=== PATIENT | female | born 1940 | race Caucasian/White ===

== ENCOUNTER 2023-02-03 14:41 | Emergency (ER) | payer OTHER ==
[2023-02-03 14:55] VITALS: BP 134/69; PULSE 77; RESP 18; TEMP 97.9; BMI 21.9
== END 2023-02-03 16:05 | disposition home or self-care (01) ==
LOC: JER 14:41
DX: S69.91XA Unspecified injury of right wrist, hand and finger(s), initial encounter (principal); W18.30XA Fall on same level, unspecified, initial encounter
CPT/HCPCS: 73140-TC-RT-FY; 99283-25

== ENCOUNTER 2023-06-29 18:09 | Emergency (ER) | payer OTHER ==
[2023-06-29 18:31] VITALS: BP 124/68; PULSE 68; RESP 18; TEMP 98; BMI 20.1
[2023-06-29] MEDS ORDERED: CLINDAMYCIN HCL 150 MG CAPSULE (FP) PO ONE (19:38)
[2023-06-29] MEDS ORDERED: CLINDAMYCIN HCL 150 MG CAPSULE (FP) ONE (19:49)
[2023-06-29 20:14] LABS: BASO % 1.2 % (0-2.0); EOS % 2.9 % (0-4.5); HEMOGLOBIN 13.7 GM/dL (10.7-15.3); LYMPH % 30.5 % (8-40); MCH 29.4 pg (25.7-33.7); MCHC 34.3 g/dl (32.0-36.0); MEAN CELL VOLUME 85.9 fl (80-96); MEAN PLT VOLUME 8.1 fl (7.5-11.1); MONO % 7.8 % (3.8-10.2); NEUT % 57.6 % (42.8-82.8); PLATELET COUNT 267 10^3/uL (134-434); RBC 4.65 M/mm3 (3.60-5.2); RDW 13.8 % (11.6-15.6); WHITE BLOOD COUNT 11.2 K/mm3 (4.0-10.0)
[2023-06-29 20:43] LABS: POTASSIUM 4.1 mmol/L (3.5-5.1)
[2023-06-29 20:46] LABS: ALBUMIN 3.4 g/dl (3.4-5.0); BLOOD UREA NITROGEN 16.3 mg/dL (7-18); CALCIUM 8.7 mg/dL (8.5-10.1)
[2023-06-29 20:49] LABS: CREATININE 1.1 mg/dL (0.55-1.3)
[2023-06-29 20:51] LABS: BILIRUBIN,TOTAL 0.3 mg/dL (0.2-1); TOT PROT 6.3 g/dl (6.4-8.2)
== END 2023-06-29 21:03 | disposition home or self-care (01) ==
LOC: JER 18:09
DX: R22.41 Localized swelling, mass and lump, right lower limb (principal); L03.115 Cellulitis of right lower limb; M79.671 Pain in right foot; M79.604 Pain in right leg
CPT/HCPCS: 36415; 80053; 85025; 99283-25

== ENCOUNTER 2024-06-22 06:22 | Observation (INO) | payer OTHER ==
[2024-06-22 06:48] VITALS: BMI 20.1
[2024-06-22 08:24] LABS: INR 0.89 (0.83-1.09); PROTHROMBIN TIME (PATIENT) 10.3 SEC (9.7-13.0)
[2024-06-22 08:36] LABS: EOS % 2.6 % (0-4.5); HEMOGLOBIN 15.6 GM/dL (10.7-15.3); LYMPH % 32.7 % (8-40); MCH 30.2 pg (25.7-33.7); MCHC 33.8 g/dl (32.0-36.0); MEAN CELL VOLUME 89.3 fl (80-96); MEAN PLT VOLUME 8.5 fl (7.5-11.1); MONO % 8.1 % (3.8-10.2); NEUT % 55.6 % (42.8-82.8); PLATELET COUNT 264 10^3/uL (134-434); RBC 5.15 M/mm3 (3.60-5.2); RDW 13.6 % (11.6-15.6); WHITE BLOOD COUNT 8.5 K/mm3 (4.0-10.0)
[2024-06-22 08:43] LABS: POTASSIUM 3.9 mmol/L (3.5-5.1)
[2024-06-22 08:44] LABS: ALBUMIN 3.2 g/dl (3.4-5.0); BLOOD UREA NITROGEN 12.6 mg/dL (7-18); MAGNESIUM 2.2 mg/dL (1.8-2.4)
[2024-06-22 08:49] LABS: CREATININE 0.7 mg/dL (0.55-1.3)
[2024-06-22 08:50] LABS: BILIRUBIN,TOTAL 0.3 mg/dL (0.2-1); TOT PROT 6.1 g/dl (6.4-8.2)
[2024-06-22] MEDS: SODIUM CHLORIDE 0.9% 500 ML INFUS.BAG IV ONE (09:03)
[2024-06-22 10:42] LABS: EPI CELLS 8 /uL (0-25.1); HYALINE CASTS 0 /uL (0-3.1); URINE APPEARANCE CLEAR; URINE BACTERIA 135 /uL (0-1359); URINE BILIRUBIN NEGATIVE (NEGATIVE); URINE COLOR YELLOW; URINE GLUCOSE (UA) NEGATIVE (NEGATIVE); URINE KETONE NEGATIVE (NEGATIVE); URINE LEUK ESTERASE 3+ (NEGATIVE); URINE NITRITE NEGATIVE (NEGATIVE); URINE PROTEIN NEGATIVE (NEGATIVE); URINE RBC 17 /uL (0-23.9); URINE UROBILINOGEN 0.2 mg/dL (0.2-1.0); URINE WBC 118 /uL (0-25.8)
[2024-06-22] MEDS ORDERED: CEFTRIAXONE 1 GM/50 ML BAG ONE (10:51)
[2024-06-22] MEDS: CEFTRIAXONE 1,000 MG in DEXTROSE 5%-WATER - 50 ML IVPB ONE (11:10)
[2024-06-22 11:24] VITALS: BP 129/63; PULSE 62; RESP 16; TEMP 97.8
== END 2024-06-22 11:56 ==
LOC: JER 06:22 → JERBED 10:57
PROVIDERS: ADMIT Internal Medicine; ATTEND Internal Medicine
PROC: 3E03329 Introduction of Other Anti-infective into Peripheral Vein, Percutaneous Approach (ICD-10-PCS; principal; 2024-06-22)
PROC: 3E0337Z Introduction of Electrolytic and Water Balance Substance into Peripheral Vein, Percutaneous Approach (ICD-10-PCS; 2024-06-22)
DX: N39.0 Urinary tract infection, site not specified (principal); R55 Syncope and collapse; F03.90 Unspecified dementia, unspecified severity, without behavioral disturbance, psychotic disturbance, mood disturbance, and anxiety; I10 Essential (primary) hypertension; W18.39XA Other fall on same level, initial encounter; Y93.89 Activity, other specified; Y92.091 Bathroom in other non-institutional residence as the place of occurrence of the external cause
CPT/HCPCS: 0241U-QW; 36415; 70450-TC; 71045-TC-FY; 72125-TC; 72170-TC-FY; 80053; 81003; 83735; 84484; 85025; 85610; 85730; 87086; 93005; 93010; 96361; 96365; 99285-25; G0378